=== PATIENT | male | born 1985 | race Caucasian/White ===

== ENCOUNTER 2017-07-02 20:54 | Emergency (ER) | payer BC ==
[2017-07-02 21:01] VITALS: BP 152/95; PULSE 91; RESP 18; TEMP 98.2; O2SAT 100
--- NOTE | 2017-07-02 21:20 | ED PDOC ---
HPI: General Adult Time Seen by Provider: 07/02/17 21:02 Chief Complaint (Nursing): Lower Extremity Problem/Injury Chief Complaint (Provider): Toe injury History Per: Patient History/Exam Limitations: no limitations Onset/Duration Of Symptoms: Days (x1) Current Symptoms Are (Timing): Still Present Additional Complaint(s): 31 year old male presents for evaluation of a left 3rd toe injury sustained today. He states he hit his left 3rd toe in the tub this morning and has noticed increasing swelling and redness since then. Patient reports pain worsens when walking. He did not take any medications for pain. Patient denies any numbness or tingling to the affected area. PMD: none Past Medical History Reviewed: Historical Data, Nursing Documentation, Vital Signs Vital Signs: Last Vital Signs Temp 98.2 F 07/02/17 20:56 Pulse 91 H 07/02/17 20:56 Resp 18 07/02/17 20:56 BP 152/95 H 07/02/17 20:56 Pulse Ox 100 07/02/17 21:20 - Medical History PMH: No Chronic Diseases - Surgical History Surgical History: No Surg Hx - Family History Family History: States: No Known Family Hx - Living Arrangements Living Arrangements: With Family - Allergies Allergies/Adverse Reactions: Allergies Allergy/AdvReac Type Severity Reaction Status Date / Time No Known Allergies Allergy Verified 07/02/17 20:56 Review of Systems ROS Statement: Except As Marked, All Systems Reviewed And Found Negative Musculoskeletal: Positive for: Other (injury to left 3rd toe) Neurological: Negative for: Numbness (and tingling) Physical Exam - Reviewed Nursing Documentation Reviewed: Yes Vital Signs Reviewed: Yes - Physical Exam Appears: Positive for: Well, Non-toxic, No Acute Distress Head Exam: Positive for: ATRAUMATIC, NORMAL INSPECTION, NORMOCEPHALIC Skin: Positive for: Normal Color. Negative for: Rash Eye Exam: Positive for: Normal appearance Extremity: Positive for: Other (Swelling, tenderness, and ecchymosis to left 3rd toe distally with decreased ROM. No obvious bony deformity, normal cap refill, toenail intact) Neurologic/Psych: Positive for: Alert, Oriented, Gait (steady) - ECG O2 Sat by Pulse Oximetry: 100 (RA) Pulse Ox Interpretation: Normal - Other Rad left foot x-ray X-Ray: Interpreted by Me, Viewed By Me X-Ray Interpretation: no fx, no dis Medical Decision Making Medical Decision Makin31 year old with toe injury Time: 21:15 Plan: Pain medication offered and patient declined X-ray of left foot Patient is aware of x-ray results, all questions answered. Patient was instructed to ice and elevate affected area and take ibuprofen for pain as needed. He was referred to podiatry clinic for follow-up. Viet tape to toes declined. Scribe Attestation: Documented by Nilda Zendejas, acting as a scribe for Mary Fallon PA-C Provider Scribe Attestation: All medical record entries made by the Scribe were at my direction and personally dictated by me. I have reviewed the chart and agree that the record accurately reflects my personal performance of the history, physical exam, medical decision making, and the department course for this patient. I have also personally directed, reviewed, and agree with the discharge instructions and disposition. Disposition - Clinical Impression Clinical Impression: Toe contusion - Patient ED Disposition Is Patient to be Admitted: No Counseled Patient/Family Regarding: Studies Performed, Diagnosis, Need For Followup - Disposition Referrals: Podiatry Clinic [Outside] Disposition: Routine/Home Disposition Time: 22:13 Condition: STABLE Additional Instructions: Ice, elevate and rest the affected area. Take ibuprofen for pain as needed, 3 tablets every 6 hours. Follow-up with podiatry clinic for any persistent symptoms. Instructions: Toe Injury, Contusion (DC) Forms: [employer] ([place])
--- NOTE | 2017-07-03 09:22 | RAD ---
PROCEDURE: Left Foot Radiographs. HISTORY: attn 3rd digit, trauma COMPARISON: None. FINDINGS: BONES: No acute fracture or destructive bony lesion identified. JOINTS: Normal. SOFT TISSUES: Normal. OTHER FINDINGS: None. IMPRESSION: Unremarkable left foot radiographs.
== END 2017-07-02 23:14 | disposition home or self-care (01) ==
LOC: H.ER 20:54
DX: S90.122A Contusion of left lesser toe(s) without damage to nail, initial encounter (principal); W22.8XXA Striking against or struck by other objects, initial encounter; Y92.002 Bathroom of unspecified non-institutional (private) residence as the place of occurrence of the external cause